=== PATIENT | female | born 1965 | race Caucasian/White ===

== ENCOUNTER 2024-09-01 16:23 | Emergency (ER) | payer BC, SELFPAY ==
[2024-09-01] VITALS (18 sets, daily range): BP systolic 161–200; BP diastolic 78–92; PULSE 62–144; RESP 11–22; TEMP 36.7; O2SAT 97–100
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
[2024-09-01] MEDS: fentaNYL 100 MCG/2 ML VIAL 50 MCG IVP (16:52)
--- NOTE | 2024-09-01 17:16 | DI.RAD_ITS ---
Exam(s) XR WRIST RT COMPLETE EXAM: XR WRIST RT COMPLETE CLINICAL HISTORY: Obvious deformity, FOOSH. TECHNIQUE: 2D digital imaging was performed of the right wrist. Three views were obtained. PA, lat eral and oblique views were obtained. COMPARISON: No exams were available for comparison FINDINGS: BONES: There is an acute mildly comminuted fracture involving the distal metaphysis of the right radi us with dorsal angulation. There does appear to be involvement of the radiocarpal joint medially. T here is a displaced ulnar styloid process fracture. No bony destructive lesion is seen. JOINTS: The carpal bones are normally aligned. Marked degenerative changes are seen at the 1st CMC geoff int characterized by joint space narrowing and osteophytes. SOFT TISSUE: Normal. IMPRESSION: 1. Dorsally angulated mildly comminuted fracture of the distal metaphysis of the right radius. There may be involvement of the medial radiocarpal joint. 2. Displaced ulnar styloid process fracture. DATA REPOSITORY: RADIATION DOSE DELIVERED:
--- NOTE | 2024-09-01 17:17 | DI.RAD_ITS ---
Exam(s) XR SHOULDER RT COMPLETE 2+V EXAM: XR SHOULDER RT COMPLETE 2+V CLINICAL HISTORY: pain with movement of the shoulder after FOOSH. TECHNIQUE: 2D digital imaging was performed of the right shoulder. Four images were obtained. AP, Grashey and Y views were obtained. COMPARISON: No exams were available for comparison FINDINGS: BONES: No acute fracture is present. No bony destructive lesion is seen. JOINTS: No dislocation present. Degenerative changes are seen at the acromioclavicular joint. SOFT TISSUE: Normal. There is an old well corticated osseous density lateral to the acromion. IMPRESSION: No acute fracture or dislocation. DATA REPOSITORY: RADIATION DOSE DELIVERED:
[2024-09-01] MEDS: Ketamine 500 MG/10 ML VIAL 200 MG IVP (18:00)
--- NOTE | 2024-09-01 18:00 | DI.RAD_ITS ---
Exam(s) XR WRIST RT COMPLETE EXAM: XR WRIST RT COMPLETE CLINICAL HISTORY: Post-reduction. TECHNIQUE: 2D digital imaging was performed of the right wrist. Four views were obtained. PA, late ral and oblique views were obtained. COMPARISON: CR,XR XR WRIST RT COMPLETE from 09/01/2024 FINDINGS: The patient's wrist is now in a cast. This does obscure the underlying bony detail. BONES: There is again seen a fracture through the distal metaphysis of the right radius. The fractur e has been reduced but there is a persistent mild dorsal angulation of the fracture. There is again seen a displaced ulnar styloid process fracture. No bony destructive lesion is seen. JOINTS: The carpal bones are normally aligned. Degenerative changes are seen at the 1st CMC joint. SOFT TISSUE: Normal. IMPRESSION: 1. Improved alignment of the distal right radial fracture with residual dorsal angulation. 2. Persistent displaced ulnar styloid process fracture. 3. Interval placement of a splint. DATA REPOSITORY: RADIATION DOSE DELIVERED:
[2024-09-01] MEDS: Ondansetron 4 MG/2 ML VIAL IVP (18:01)
[2024-09-01] MEDS: Normal Saline 1,000 ML 1000 ML IV (18:03)
--- NOTE | 2024-09-01 18:18 | PROC.BLANK_ITS ---
Procedures Procedural Sedation Indication: fracture/dislocation reduction Presedation Evaluation: Patient denies any chronic medical problems and has never had anesthesia before denies any allergies. ASA Class: I Time of Last PO Intake: 08:00 Preparation: monitor and storage bin tender applied, pulse oximeter, capnometry used and supplemental O2 applied Ketamine: IV Ketamine dose (mg): 100 Patient Tolerated Procedure: well Complications: none Additional Comments: Patient tolerated procedure well, was given 100 mg of IV ketamine and had no complications. Pending follow-up x-ray Medical Decision Making Quality:SDOH Health Related Social Needs: No Data to Display
--- NOTE | 2024-09-01 18:38 | RESPIRATORY ---
Respiratory Therapy on emergency stand by for conscious sedation. ETC02, ambu bag, suction, and nasal trumpet at bedside. Patient placed on 2L for Sp02 > 95%. Patient back on room air post procedure, Sp02 98%. Procedure tolerated well.
--- NOTE | 2024-09-01 18:47 | DI.VRAD_ITS ---
PROCEDURE INFORMATION: Exam: XR Right Wrist Exam date and time: 09/01/2024 5:08 PM Age: 59 years old Clinical indication: Injury or trauma; Fall; Other: Obvious deformity, foosh TECHNIQUE: Imaging protocol: Radiologic exam of the right wrist. Views: 3 or more views. COMPARISON: No relevant prior studies available. FINDINGS: Bones/joints: There is a comminuted fracture of the distal right radius with anterior angulation at the fracture site. There may be a small radiocarpal intra-articular component to the fracture. There is an avulsion styloid fracture of the right ulna. There are degenerative changes at the 1st carpometacarpal joint consistent with osteoarthritis. There is generalized osteopenia present. Soft tissues: There is soft tissue swelling present. IMPRESSION: There is a comminuted fracture of the distal right radius with anterior angulation at the fracture site. There may be a small radiocarpal intra-articular component to the fracture. Dictated and Authenticated by: Michael Bruce MD. Ordering:LYNNETTE Tripp MD
--- NOTE | 2024-09-01 18:48 | DI.VRAD_ITS ---
PROCEDURE INFORMATION: Exam: XR Right Shoulder Exam date and time: 09/01/2024 5:12 PM Age: 59 years old Clinical indication: Injury or trauma; Fall; Other: Pain with movement after foosh TECHNIQUE: Imaging protocol: Radiologic exam of the right shoulder. Views: 2 or more views. COMPARISON: No relevant prior studies available. FINDINGS: Bones/joints: Mild degenerative changes of the right shoulder with soft tissue calcifications at the level of the acromion. There is no evidence of fracture. There is no evidence of dislocation. The acromioclavicular joint is normal. The subacromial joint space is well-preserved. The glenohumeral joint is normal. No joint effusion is present. Soft tissues: There is soft tissue swelling of the right shoulder. IMPRESSION: 1. There is soft tissue swelling of the right shoulder. 2. Mild degenerative changes of the right shoulder with soft tissue calcifications at the level of the acromion. Dictated and Authenticated by: Michael Bruce MD. Ordering:LYNNETTE Tripp MD
--- NOTE | 2024-09-01 18:50 | DI.VRAD_ITS ---
PROCEDURE INFORMATION: Exam: XR Right Wrist Exam date and time: 09/01/2024 6:19 PM Age: 59 years old Clinical indication: Injury or trauma; Fall; Other: Post reduction TECHNIQUE: Imaging protocol: Radiologic exam of the right wrist. Views: 3 or more views. COMPARISON: CR XR WRIST RT COMPLETE 09/01/2024 5:08 PM FINDINGS: Tubes, catheters and devices: There is a fiberglass splint in place stabilizing the right wrist fracture. Bones/joints: There has been partial closed reduction of the right radial and ulnar fracture. There is marked improvement in alignment position with slight residual displacement and angulation. There does appear to be intra-articular component to the fracture of the radius. There is generalized osteopenia present. Soft tissues: There is soft tissue swelling present. IMPRESSION: 1. There has been partial closed reduction of the right radial and ulnar fracture. There is marked improvement in alignment position with slight residual displacement and angulation. There does appear to be intra-articular component to the fracture of the radius. 2. There is soft tissue swelling present. 3. There is a fiberglass splint in place stabilizing the right wrist fracture. Dictated and Authenticated by: Michael Bruce MD. Ordering:LYNNETTE Tripp MD
[2024-09-01] MEDS: Acetaminophen 325 MG TAB 650 MG PO (19:08)
--- NOTE | 2024-09-02 16:25 | NUR.NOTE ---
Accessed chart for [facility] billing purposes. Nursing Note:
== END 2024-09-01 19:28 | disposition home or self-care (01) ==
PROVIDERS: Emergency Provider Nurse Practitioner Family
DX: S52.501A Unspecified fracture of the lower end of right radius, initial encounter for closed fracture (principal); W03.XXXA Other fall on same level due to collision with another person, initial encounter; M85.88 Other specified disorders of bone density and structure, other site
CPT/HCPCS: 96361; 96374; 96375; 99152; 99284; 25605; 73030; 73110; J2405; J3010